=== PATIENT | male | born 1965 | race Two or more races ===

== ENCOUNTER → 2024-09-15 | Outpatient (CLI) | payer MEDICAID, SELFPAY ==
--- NOTE | 2024-09-15 11:00 | XR_ITS ---
Examination: Pelvic ultrasound, transabdominal, complete Technique: Transabdominal ultrasound of the pelvis performed using grayscale imaging Date and time of exam: September 15, 2024 1101 hours INDICATIONS: Pelvic pain beginning one year ago FINDINGS: No bladder mass or bladder calculi Bladder prevoid volume 358 cc bladder postvoid volume 29 cc Prostate not enlarged 13 cc no prostate nodules IMPRESSION: Negative study
--- NOTE | 2024-09-15 11:30 | XR_ITS ---
Examination: Testicular sonography complete TECHNIQUE: Grayscale sonographic images testes, assessment arterial inflow venous outflow Doppler spectral analysis carful analysis Exam date and time: September 15, 2024 1109 hours INDICATIONS: Onset right testicular pain beginning one year ago FINDINGS: Right testis 4.5 cm epididymis 18 mm 5 mm right epididymal cyst Arterial flow testicle. No testicular mass Left testis 4.9 cm epididymis 17 mm 5 mm left epididymal cyst Arterial flow testicle. No testicular mass IMPRESSION: No testicular torsion or testicular mass
== END | disposition home or self-care (01) ==
LOC: CDIM 10:47
PROVIDERS: Referring Provider Behavior Technician; Visit Provider Behavior Technician
DX: N50.819 Testicular pain, unspecified (principal)
CPT/HCPCS: 76856; 76870